=== PATIENT | female | born 1995 | race African-American/Black ===

== ENCOUNTER 2020-08-30 15:15 | Emergency (ER) | payer OTHER ==
[~2020-08-30] VITALS: Ht 157.5 cm; Wt 54.4 kg
--- NOTE | ~2020-08-30 | EMS ---
[address] [address] EMS Patient Care Report Name: GEORGE HARDING Room #: PRE M.R.#: [id number] Admission: Attend Phys: Discharge: Date of : [birth year] Report #: [id number] THIS REPORT FOR: //name// Report Transmitted: 08/30/2020 14:58 EMS Care Summary [place], [place]/[facility] Incident [id number] @ 08/30/2020 14:36 Incident Location [address] [place] [address] Patient GEORGE HARDING Female, 25 Years 1995 Patient Address [address] [place] [address] Patient History None Reported, Patient Allergies No known allergies, Patient Medications None Reported, Chief Complaint nausea vomiting Disposition Transported No Lights/[place] Dispatch Reason Sick Person Transported To [facility] Narrative pt met at front door. pt a&ox4 gcs 15 and did not present in apparent distress. pt stated she believes she drank too much alcohol last night and has been having nausea and vomiting since 0900. pt requested to be transported to the hospital and has no preference. pt agreed for [facility]. pt walked to ambulance. pt [address] [address] EMS Patient Care Report Name: GEORGE HARDING Room #: PRE Nolan#: [id number] Admission: Attend Phys: Discharge: Date of : [birth year] Report #: [id number] was transferred onto ems cot. pt was secured in a semi fowlers position without incident. pt stated she only drank "one shot" last night and had nothing else. pt stated she was concerned about alcohol poisoning. ems informed pt that alcohol poisoning would be unlikely from one ounce of alcohol and to be several hours onset after drinking. pt was transported non emergent. pt was administered 4mg zofran po. pt was given an emesis bucket. pt vomited once into bucket. the rest transport was uneventful and pt rested on ems cot. pt care was transferred to appropriate staff and ems goes back in service. pts purse was left with pt. Initial Vitals @14:58P: 82,R: 20,BP: 114/60,Pain: 2/10,GCS: 15,SpO2: 100,Revised Trauma: 12, @15:11P: 60,R: 20,BP: 116/60,GCS: 15,SpO2: 100,Revised Trauma: 12, Assessments @14:54MENTAL:No Abnormalities,SKIN:No Abnormalities,HEENT:Head/Face: No Abnormalities,Eyes: No Abnormalities,Neck/Airway: No Abnormalities,LUNG SOUNDS:General: Vomiting,General: Nausea,ABDOMEN:General: Vomiting,General: Nausea,PELVIS//GI:No Abnormalities,EXTREMITIES:Left Arm: No Abnormalities,Right Arm: No Abnormalities,Left Leg: No Abnormalities,Right Leg: No Abnormalities,PULSE:NEURO:No Abnormalities,@15:15MENTAL:No Abnormalities,SKIN:No Abnormalities,HEENT:Head/Face: No Abnormalities,Eyes: No Abnormalities,Neck/Airway: No Abnormalities,LUNG SOUNDS:General: No Abnormalities,Left Upper: No Abnormalities,Right Upper: No Abnormalities,Left Lower: No Abnormalities,Right Lower: No Abnormalities,ABDOMEN:General: No Abnormalities,Left Upper: No Abnormalities,Right Upper: No Abnormalities,Left Lower: No Abnormalities,Right Lower: No Abnormalities,PELVIS//GI:No Abnormalities,EXTREMITIES:Left Arm: No Abnormalities,Right Arm: No Abnormalities,Left Leg: No Abnormalities,Right Leg: No Abnormalities,PULSE:NEURO:No Abnormalities, Impression Abdominal Pain Procedures @14:54ALS AssessmentResponse: UnchangedSucceeded@14:59Zofran - 4 Milligrams (mg) - OralResponse: Unchanged Timeline 14:33,Call Received 14:33,Dispatch Notified 14:36,Dispatched 14:37,En Route 14:53,On Scene 14:54,At Patient 14:54,ALS Assessment,Response: UnchangedSucceeded, [address] [address] EMS Patient Care Report Name: GEORGE HARDING Room #: PRE M.R.#: [id number] Admission: Attend Phys: Discharge: Date of : [birth year] Report #: [id number] 14:58,BP: 114/60 M,PULSE: 82,RR: 20 R,SPO2: 100 Ox,ETCO2: ,BG: ,PAIN: 2,GCS: 15, 14:59,Zofran - 4 Milligrams (mg) - Oral,Response: Unchanged 14:59,Depart Scene 15:11,BP: 116/60 M,PULSE: 60,RR: 20 R,SPO2: 100 Ox,ETCO2: ,BG: ,PAIN: ,GCS: 15, 15:12,At Destination 15:23,Call Closed Disclaimer [email or web address] Copyright 2020 [employer] This EMS Care Summary contains data elements from the applicable legal record (which may be displayed differently). It is designed to provide pertinent information for the following purposes: continuity of care, clinical quality, and state data reporting. The complete legal record is available to ED staff and administrators of the receiving hospital in [email or web address] Patient Tracker. All data is provided "as is."
[2020-08-30 15:41] LABS: ABSOLUTE NEUTROPHILS 9.4 thou/uL (1.4-8.2); BASOPHILS 0.4 % (0.0-2.0); HEMATOCRIT 38.9 % (37.0-47.0); HEMOGLOBIN 12.9 gm/dL (12.0-15.0); LYMPHOCYTES 10.1 % (24.0-44.0); MCH 29.8 pg (26.0-34.0); MONOCYTES 5.8 % (1.0-8.0); PLATELET COUNT 263 thou/uL (150-400); POLYS 83.7 % (36.0-66.0); RBC 4.32 mil/uL (4.20-5.00); RDW 12.6 % (10.5-14.5); WBC 11.3 thou/uL (4.0-11.0)
[2020-08-30 15:55] LABS: ANION GAP 13 mmol/L (7-16); BUN 11 mg/dL (7-18); CALCIUM 9.9 mg/dL (8.5-10.1); CHLORIDE 105 mmol/L (98-107); CO2 22 mmol/L (21-32); CREATININE 1.2 mg/dL (0.6-1.0); GLUCOSE 105 mg/dL (74-106); POTASSIUM 4.4 mmol/L (3.5-5.1); SODIUM 140 mmol/L (136-145)
[2020-08-30 16:03] LABS: ALBUMIN 4.5 g/dL (3.4-5.0); DIRECT BILIRUBIN < 0.1 mg/dL (<0.1-0.2); LIPASE 43 U/L (73-393); SGOT 40 U/L (15-37); SGPT 36 U/L (14-59); TOTAL BILIRUBIN 0.6 mg/dL (0.2-1.0); TOTAL PROTEIN 8.4 g/dL (6.4-8.2)
[2020-08-30] MEDS ORDERED: ONDANSETRON HCL4 M2 PO (17:25)
[2020-08-30 18:17] VITALS: BP 104/63
== END 2020-08-30 18:17 | disposition home or self-care (01) ==
LOC: ER 15:15
PROVIDERS: Nurse Practitioner
DX: R10.13 Epigastric pain (principal); R11.2 Nausea with vomiting, unspecified; F17.210 Nicotine dependence, cigarettes, uncomplicated